=== PATIENT | female | born 1935 | race Caucasian/White ===

== ENCOUNTER 2018-02-08 06:31 | Inpatient (IN) ==
[2018-02-08] MEDS ORDERED: TRANEXAMIC ACID IV.SIG SCH ×3 (08:13→09:00)
[2018-02-08] MEDS ORDERED: SODIUM CHLOR 0.9% IV.SIG SCH ×3 (08:13→09:00)
[2018-02-08] MEDS ORDERED: Chlorhexidine 4% Topical 120 APPLIC/120 ML Bottle TOPICAL SCH ×2 (08:15)
[2018-02-08] MEDS ORDERED: Chlorhexidine Gluconate 2% 1 Pack (2 Cloths) TOPICAL SCH (08:30)
[2018-02-08] MEDS ORDERED: Metoprolol Tartrate 25 MG Tablet PO SCH (08:30)
[2018-02-08] MEDS ORDERED: Vancomycin Inj 1 GM/200 ML PIGGYBACK IV.SIG SCH ×2 (09:00)
[2018-02-08] MEDS ORDERED: Sodium Chlor 0.9% Inj 500 ML IV.SIG SCH (09:00)
[2018-02-08] MEDS ORDERED: Mupirocin 2% Nasal Oint Topical Syringe NASAL SCH (09:00)
[2018-02-08] MEDS ORDERED: fentaNYL Citrate Inj 100 MCG/2 ML Ampul ONE ×2 (09:36→09:37)
[2018-02-08] MEDS ORDERED: Famotidine PF Inj 20 MG/2 ML Vial ONE (09:37)
[2018-02-08 09:56] LABS: Baso % (Auto) 0.6 % (0.0-2.0); Eos # (Auto) 0.2 th/mm3 (0.0-0.4); Eos % (Auto) 2.4 % (0.0-4.0); Hematocrit 33.4 % (35.0-46.0); Hemoglobin 10.8 gm/dL (11.6-15.3); Lymph # (Auto) 0.8 th/mm3 (1.0-4.8); Lymph % (Auto) 12.1 % (9.0-44.0); Mean Corpuscular HGB Conc 32.4 % (32.0-36.0); Mean Corpuscular Hemoglobin 27.5 pg (27.0-34.0); Mean Corpuscular Volume 84.9 fL (80.0-100.0); Mean Platelet Volume 8.9 fL (7.0-11.0); Mono # (Auto) 0.4 th/mm3 (0.0-0.9); Mono % (Auto) 5.8 % (0.0-8.0); Neut # (Auto) 5.4 th/mm3 (1.8-7.7); Neut % (Auto) 79.1 % (16.0-70.0); Platelet Count 392 th/mm3 (150-450); Red Blood Count 3.93 mil/mm3 (4.00-5.30); Red Cell Distribution Width 14.6 % (11.6-17.2); White Blood Count 6.8 th/mm3 (4.0-11.0)
[2018-02-08 10:14] LABS: Calcium 9.6 mg/dL (8.5-10.1); Carbon Dioxide 25.3 meq/L (21.0-32.0); Potassium 3.7 meq/L (3.5-5.1)
[2018-02-08] MEDS ORDERED: Neostigmine Inj 5 MG/5 ML Syringe IV.PUSH ONE (12:00)
[2018-02-08] MEDS ORDERED: Lidocaine PF 1% Inj 5 ML Syringe INFILTRATN ONE (12:00)
[2018-02-08] MEDS ORDERED: Phenylephrine/NS 1000 MCG/10ML Syringe IV.PUSH ONE (12:00)
[2018-02-08] MEDS ORDERED: Glycopyrrolate Inj 1 MG/5 ML Syringe IV.PUSH ONE (12:00)
[2018-02-08] MEDS ORDERED: Bupivacaine/Epinephrine Inj 0.25% 50 ML Vial ONE (12:12)
[2018-02-08] MEDS ORDERED: Post-op Orders (for Pharmacy) OTHER STA (12:27)
[2018-02-08] MEDS ORDERED: Bisacodyl 10 MG Supp RECTAL PRN (12:27)
[2018-02-08] MEDS ORDERED: Promethazine 25 MG Supp RECTAL PRN (12:27)
--- NOTE | 2018-02-08 12:42 | P.OP ---
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 My P.A. presence was necessary throughout this case for the manipulation and positioning of the surgical extremity. My P.A. was assisting me throughout the duration of this procedure. The skill set of a physician social services assistant was medically necessary to complete this procedure. During the surgical case the surgical garment assembly supervisor was working at the back table and the physician social services assistant was directly assisting me. Operation and Findings: Implants used: ITS Plan of activity: Nonweightbearing, passive range of motion of knee Details of procedure: Informed consent was obtained, operative site was marked. Patient was brought to the OR, placed on OR table, and given IV sedation with GETA. IV antibiotics were administered and timeout procedure was performed. The operative leg was prepped with alcohol, followed with Hibiclens, draped in usual sterile fashion. A timeout procedure was performed. The procedure began with a 3-inch incision over the lateral aspect of the distal femur. The incision was made slightly posterior because of patient's previous anterior incision for her total knee.. Subcutaneous tissue was dissected with Bovie. Iliotibial band was split in line with fibers. At this point attention was turned to hardware removal. The plate was visualized. Multiple percutaneous incisions were made proximally. Each of the screws in the shaft was identified under fluoroscopy. Using appropriate screwdrivers the screws were removed. The plate was now elevated and removed. There are 4 broken screws in the distal segment. Each of the screws were identified under fluoroscopy. Using the appropriate broken screw removal instruments, the screws were removed. Next attention was turned towards the nonunion. At this point the fracture was visualized. There was fibrous tissue at the fracture site. A TPS bur was used to debride the fracture site back to healthy bleeding bone. The fracture site was now thoroughly irrigated. Next attention was turned towards reduction. Traction was applied. Fracture was manipulated. Fracture tenaculums were used to aid in reduction. The fracture reduced into excellent alignment. Steinmann pins were used to hold provisional fixation. At this point attention was turned to plate placement. A lateral condylar plate was selected and attached to the insertion handle jig. The plate was placed underneath the vastus lateralis. Steinmann pins were used to hold the plate to bone. Multiplanar fluoroscopy confirmed appropriate placement of plate. Multiple 4.5 cortical screws were now placed in percutaneous fashion through the plate. The plate was compressed to bone. Multiple locking screws were now placed in the distal segment of the distal femur. Additional screws were placed into the femoral shaft. All screws were predrilled and premeasured for appropriate length. At this point attention was turned iliac crest bone grafting. A 3 cm incision was made over the iliac crest. Subcutaneous tissue dissected with Bovie. Osteotomes were used to create a window in the iliac crest. Bone graft was now harvested from the iliac crest using curettes. After completion of harvesting of the bone graft fascia was closed with #1 Vicryl. Subcutaneous tissues closed with 3-0 Vicryl. Skin was closed with chintan. The incision area was infiltrated with quarter percent Marcaine with epinephrine. A medium infuse graft was now opened. This was mixed appropriately and allowed to set. The iliac crest bone graft was now rolled into the infuse sponge. This bone graft was now packed around the fracture nonunion site. The defect was completely filled. Final fluoroscopy revealed excellent alignment of fracture with well-placed hardware. Wound was thoroughly irrigated. Fascia was closed with #1 Vicryl. Subcutaneous tissue was closed with 3-0 Vicryl. Skin was closed with chintan. Sterile dressings were applied. The patient was placed into a knee immobilizer and transferred to recovery in stable condition. Needle and sponge counts were correct.
[2018-02-08] MEDS ORDERED: *morphine SULFATE 4 MG/ML PERIprocedure ONLY ONE ×2 (13:00→14:14)
[2018-02-08] MEDS ORDERED: *Meperidine Inj 25 MG/ML Vial PERIprocedural Use ONLY ONE (13:08)
--- NOTE | 2018-02-08 17:40 | XR ---
EXAM DATE: 02/08/2018 5:10 PM EDT AGE/SEX: 82 years / Female INDICATIONS: Left femur hardware removal and ORIF. CLINICAL DATA: This is the patient's initial encounter. Patient reports that signs and symptoms have been present for 1 day and indicates a pain score of Nonresponsive. MEDICAL/SURGICAL HISTORY: None. None. COMPARISON: No prior exams available for comparison. FINDINGS: Side plate and multiple screws traverse the femur with excellent anatomical alignment of the bony str uctures. 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 CONCLUSION: Intact postsurgical changes for technique. Electronically signed by: Sharon Washington MD 02/08/2018 5:38 PM EDT
[2018-02-08] MEDS: ceFAZolin Inj 2,000 MG in Sodium Chlor 0.9% Inj 80 ML IV.SIG SCH (18:34)
[2018-02-09] MEDS: ceFAZolin Inj 2,000 MG in Sodium Chlor 0.9% Inj 80 ML IV.SIG SCH ×3 (02:56→19:39)
--- NOTE | 2018-02-09 06:41 | P.PNOP ---
Subjective Interval history: Resting comfortably with no new complaints. Physical Exam Vital signs: Vital Signs 02/08/18 12:55 02/08/18 13:00 02/08/18 13:15 Temperature 97.4 F L Pulse Rate 93 H 85 82 Respiratory Rate 20 16 16 Blood Pressure 97/55 L 91/42 L 93/55 L Pulse Oximetry 96 93 L 95 02/08/18 13:30 02/08/18 14:44 02/08/18 14:47 Temperature Pulse Rate 82 76 84 Respiratory Rate 16 16 Blood Pressure 96/55 L 99/54 L Pulse Oximetry 95 97 02/08/18 15:13 02/08/18 16:00 02/08/18 18:34 Temperature 97.7 F Pulse Rate 77 85 Respiratory Rate 16 18 18 Blood Pressure 99/54 L 98/57 L Pulse Oximetry 95 100 02/08/18 20:10 02/09/18 00:20 02/09/18 04:00 Temperature 97.6 F 98.4 F 98.1 F Pulse Rate 82 91 H 82 Respiratory Rate 16 17 17 Blood Pressure 104/56 L 134/64 148/75 H Pulse Oximetry 98 96 96 Intake & Output 02/08/18 02/08/18 02/09/18 06:59 18:59 06:59 Intake Total 2160 / 2160 100 / 100 Output Total 250 / 250 Balance 1910 / 1910 100 / 100 Weight 72.5 kg Intake: IV 1000 / 1000 100 / 100 LR 1000 mL Inj 1,000 ML @ 30 1000 / 1000 mls/hr IV.SIG .Q24H STELLA Rx#: [id number] Ancef Inj 2,000 MG In NS Inj 80 100 / 100 ML @ 200 mls/hr IV.SIG Q8H STELLA Rx#:[id number] Oral 460 / 460 Anesthesia Amount 500 / 500 Other 200 / 200 Output: Estimated Blood Loss 250 / 250 Other: # Voids 1 Date of Last Bowel Movement 02/07/18 02/08/18 Weight On Admission 72.5 kg Narrative: Left lower extremity: Clean dry dressings intact. Iliac crest bone graft harvest site with clean dressings and mild swelling. Knee immobilizer in place. Distally intact sensation with active dorsiflexion plantar flexion foot - Constitutional no acute distress - Routine HEENT Exam Head: Present: normocephalic, atraumatic Results - Labs CBC & Chem 7: 02/08/18 08:42 02/08/18 08:42 Laboratory Results - last 24 hr 02/08/18 02/08/18 08:42 08:42 WBC 6.8 RBC 3.93 L Hgb 10.8 L Hct 33.4 L MCV 84.9 MCH 27.5 MCHC 32.4 RDW 14.6 Plt Count 392 MPV 8.9 Neut % (Auto) 79.1 H Lymph % (Auto) 12.1 [place] % (Auto) 5.8 Eos % (Auto) 2.4 Baso % (Auto) 0.6 Neut # (Auto) 5.4 Lymph # (Auto) 0.8 L [place] # (Auto) 0.4 Eos # (Auto) 0.2 Baso # (Auto) 0.0 WBC Differential . Differential Comment Auto diff final Sodium 136 Potassium 3.7 Chloride 100 Carbon Dioxide 25.3 Anion Gap 11 BUN 9 Creatinine 0.66 Estimated GFR 86 L Random Glucose 86 Calcium 9.6 - Imaging Impressions Femur X-Ray 02/08/18 00:00 CONCLUSION: Intact postsurgical changes for technique. 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 No active leg lifts or quad sets Daily dressing changes beginning POD 2 Lovenox Incentive spirometry Plan for potential discharge tomorrow back to rehab Follow-up appointment with Dr. Barbosa or PA in 2 weeks
[2018-02-09] MEDS: Senna/Docusate Sodium 8.6/50 MG Tablet PO SCH ×3 (08:10→23:01)
[2018-02-09] MEDS ORDERED: Vancomycin Inj 1 GM/200 ML PIGGYBACK IV.SIG SCH (09:00)
[2018-02-09] MEDS: Enoxaparin Inj 30 MG/0.3 ML Syringe SQ SCH ×2 (10:16→21:30)
[2018-02-09] MEDS: Tolterodine Tartrate LA 4 MG Capsule PO SCH (10:17)
[2018-02-09] MEDS: amLODIPine 5 MG Tablet PO SCH (10:17)
[2018-02-09] MEDS: Famotidine 20 MG Tablet PO SCH (10:17)
[2018-02-10] MEDS: ceFAZolin Inj 2,000 MG in Sodium Chlor 0.9% Inj 80 ML IV.SIG SCH ×2 (02:56→11:01)
--- NOTE | 2018-02-10 06:32 | P.PNOP ---
Subjective Interval history: Pain controlled resting comfortably. She is having difficulty repositioning in bed Physical Exam Vital signs: Vital Signs 02/09/18 08:00 02/09/18 12:00 02/09/18 16:00 Temperature 97.8 F 98.3 F 98 F Pulse Rate 78 80 79 Respiratory Rate 18 Blood Pressure 140/65 135/66 141/67 H Pulse Oximetry 93 L 95 96 02/09/18 20:00 02/10/18 00:00 02/10/18 04:00 Temperature 97.8 F 97.9 F 98.2 F Pulse Rate 79 78 88 Respiratory Rate 18 Blood Pressure 117/58 L 117/60 140/63 Pulse Oximetry 95 93 L 93 L Intake & Output 02/09/18 02/09/18 02/10/18 06:59 18:59 06:59 Intake Total 1060 / 1060 1090 / 1090 100 / 100 Output Total 550 / 550 Balance 1060 / 1060 1090 / 1090 -450 / -450 Weight 72.5 kg 72.5 kg Intake: IV 100 / 100 100 / 100 100 / 100 Ancef Inj 2,000 MG In NS Inj 80 100 / 100 100 / 100 100 / 100 ML @ 200 mls/hr IV.SIG Q8H STELLA Rx#:[id number] Oral 960 / 960 990 / 990 Output: Urine 550 / 550 Other: # Voids 15 3 Date of Last Bowel Movement 02/08/18 # Bowel Movements 0 0 Narrative: Left lower extremity: Clean dry dressings intact. Iliac crest bone graft harvest site with clean dressings and mild swelling. Knee immobilizer in place. 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 No active leg lifts or quad sets Daily dressing changes beginning POD 2 Lovenox Incentive spirometry Plan for potential discharge today back to rehab Follow-up appointment with Dr. Barbosa or PA in 2 weeks
[2018-02-10] MEDS ORDERED: Vancomycin Inj 1,000 MG in Sodium Chlor 0.9% Inj 250 ML IV.SIG SCH (09:00)
[2018-02-10] MEDS: Senna/Docusate Sodium 8.6/50 MG Tablet PO SCH (09:18)
[2018-02-10] MEDS: Famotidine 20 MG Tablet PO SCH (09:18)
[2018-02-10] MEDS: Enoxaparin Inj 30 MG/0.3 ML Syringe SQ SCH (09:18)
[2018-02-10] MEDS: amLODIPine 5 MG Tablet PO SCH (09:18)
[2018-02-10] MEDS: Tolterodine Tartrate LA 4 MG Capsule PO SCH (09:18)
== END 2018-02-10 13:04 ==
LOC: HSDI 06:31 → EDSTATUS 08:30 → N06 15:20
PROVIDERS: ADMIT Orthopaedic Surgery Orthopaedic Trauma; ATTEND Orthopaedic Surgery Orthopaedic Trauma